=== PATIENT | female | born 1940 | race African-American/Black ===

== ENCOUNTER 2016-10-16 11:04 | Inpatient (IN) | payer MEDICARE, MEDICAID ==
[~2016-10-16] VITALS: Ht 165.1 cm; Wt 69.9 kg
[~2016-10-16 11:04] MED LIST: BUSP5TAB51 PO; HCTZ25T PO; HYDR-2651 PO; HYDRX10T PO; MEM5T; POTA-167 PO; SIMV20TA90; [UNRECOGNIZED DRUG - CODE]
[2016-10-16] MEDS ORDERED: PANTOPRAZOLE SODIUM 40 MG/10 ML VIAL IV STA (11:45)
[2016-10-16] MEDS ORDERED: MORPHINE SULFATE 4 MG/ML SYRG IV ONE (11:45)
[2016-10-16] MEDS ORDERED: ONDANSETRON HCL 4 MG/2 ML VIAL IV ONE (11:45)
[2016-10-16 12:14] LABS: Basophils # (auto) 0 uL; Basophils % (auto) 0.2 % (0.0-2.0); DEFINITIVE VIEW TRANSMISSION; Eosinophils # (auto) 0 uL; Eosinophils % (auto) 0.1 % (0.0-7.0); Hematocrit 36.3 % (36.0-46.0); Hemoglobin 11.9 g/dL (12.2-16.2); Lymphocytes % (auto) 16.9 % (10.0-50.0); Mean Corpuscular Hemoglobin 25.5 pg (28.0-32.0); Mean Corpuscular Hgb Conc. 32.6 g/dL (32.0-36.0); Mean Corpuscular Volume 78.1 fL (80.0-100.0); Mean Platelet Volume 8.2 fL (7.4-10.4); Monocytes # (auto) 0.5 uL; Monocytes % (auto) 8.8 % (0.0-12.0); Neutrophils # (auto) 4.5 uL; Platelet Count (auto) 436 10^3/uL (140-450); Red Cell Distribution Width 14.6 % (11.6-16.0); White Blood Cell 6.1 10^3/uL (4.4-10.8)
[2016-10-16 12:39] LABS: Albumin 3.4 g/dL (3.4-5.0); Anion Gap 12 (5-15); Aspartate Aminotransferase 18 U/L (15-37); BUN/Creatinine Ratio 11.6; Blood Urea Nitrogen 10 mg/dL (7-18); Calcium 8.5 mg/dL (8.5-10.1); Carbon Dioxide 26 mmol/L (21-32); Chloride 92 mmol/L (98-107); GFR African American 82 mL/min; GFR Non-African American 68 mL/min; Glucose 113 mg/dL (74-106); Magnesium 1.8 mg/dL (1.6-2.6); Sodium 130 mmol/L (136-145)
[2016-10-16 12:44] LABS: Alkaline Phosphatase 126 U/L (45-117); Bilirubin, Total 0.3 mg/dL (0.2-1.0); Total Protein 8.4 g/dL (6.4-8.2)
[2016-10-16] MEDS ORDERED: POTASSIUM CHL 20MEQ/100ML 100 ML IV ONE ×2 (13:10→13:15)
[2016-10-16] MEDS ORDERED: NITROGLYCERIN 0.4 MG SL TAB SL PRN (13:15)
[2016-10-16] MEDS ORDERED: ALBUTEROL SULF 2.5 MG/0.5ML(0.5%) NEB SOLN NEB PRN (13:15)
[2016-10-16] MEDS ORDERED: PROMETHAZINE HCL 25 MG/ML 1ML IV PRN (13:15)
[2016-10-16] MEDS ORDERED: LORazepam 0.5 MG TAB PO PRN (13:15)
[2016-10-16] MEDS ORDERED: TEMAZEPAM 15 MG CAP PO PRN (13:15)
[2016-10-16] MEDS ORDERED: PATIENTS OWN MEDICATION (Buspirone Hcl 5 MG) PO PRN (13:15)
[2016-10-16] MEDS ORDERED: HYDROmorphone HCL 2 MG/ML VL IV PRN (13:30)
[2016-10-16] MEDS ORDERED: busPIRone HCL 10 MG TAB PO PRN (13:45)
[2016-10-16] MEDS: SOD CHL 0.9%/ KCL 20MEQ 1,000 ML IV SCH (14:12)
[2016-10-16] MEDS: VERAPAMIL HCL 180mg SR tab PO SCH (14:12)
[2016-10-16] MEDS: FAMOTIDINE (10MG/ML) 2ML VL IV SCH ×2 (14:19→23:02)
[2016-10-16 14:22] LABS: Urine Bilirubin Negative (Negative); Urine Blood Negative /uL (Negative); Urine Color Yellow (Yellow); Urine Glucose Normal (Normal); Urine Hyaline Cast FEW /lpf (0 - 2); Urine Ketone Negative (Negative); Urine Mucus FEW (None Seen); Urine Nitrite Negative (Negative); Urine RBC <1 /hpf (0 - 4); Urine Squamous Epithelial Cell MOD /hpf (<5); Urine Urobilinogen Normal (Negative); Urine pH 6.5 (5.0-8.0)
[2016-10-16] MEDS: hydrALAZINE HCL 25 MG TAB PO SCH ×2 (16:15→23:01)
[2016-10-16 21:34] VITALS: BP 116/57
[2016-10-16] MEDS: METOPROLOL TARTRATE 25 MG TAB PO SCH (22:00)
[2016-10-16] MEDS: ATORVASTATIN 20 MG TAB PO SCH (23:02)
[2016-10-16] MEDS: MEMANTINE HCL 5 MG TAB PO SCH (23:02)
[2016-10-16] MEDS: hydrOXYzine HCL 10 MG TAB PO SCH (23:02)
[2016-10-17] VITALS (8 sets, daily range): BP systolic 96–162; BP diastolic 51–79
[2016-10-17] MEDS: SOD CHL 0.9%/ KCL 20MEQ 1,000 ML IV SCH ×2 (04:00→16:16)
[2016-10-17] MEDS: hydrALAZINE HCL 25 MG TAB PO SCH ×3 (05:37→22:14)
[2016-10-17 06:30] LABS: Basophils # (auto) 0 uL; Basophils % (auto) 0.8 % (0.0-2.0); Eosinophils # (auto) 0 uL; Eosinophils % (auto) 0.6 % (0.0-7.0); Hematocrit 32.8 % (36.0-46.0); Hemoglobin 10.9 g/dL (12.2-16.2); Lymphocytes % (auto) 41.2 % (10.0-50.0); Mean Corpuscular Hemoglobin 27.4 pg (28.0-32.0); Mean Corpuscular Hgb Conc. 33.2 g/dL (32.0-36.0); Mean Corpuscular Volume 82.4 fL (80.0-100.0); Mean Platelet Volume 8.3 fL (7.4-10.4); Monocytes # (auto) 0.5 uL; Monocytes % (auto) 10.6 % (0.0-12.0); Neutrophils # (auto) 2.2 uL; Neutrophils % (auto) 46.8 % (37.0-80.0); Platelet Count (auto) 358 10^3/uL (140-450); Red Cell Distribution Width 14.4 % (11.6-16.0); White Blood Cell 4.7 10^3/uL (4.4-10.8)
[2016-10-17 07:29] LABS: BUN/Creatinine Ratio 14.1; Bilirubin, Total 0.2 mg/dL (0.2-1.0); Calcium 8.4 mg/dL (8.5-10.1); Potassium 3.7 mmol/L (3.5-5.1); Total Protein 6.9 g/dL (6.4-8.2)
[2016-10-17] MEDS ORDERED: busPIRone HCL 10 MG TAB PO SCH (10:00)
[2016-10-17] MEDS: ASPirin 81 mg TAB PO SCH (10:05)
[2016-10-17] MEDS: METOPROLOL TARTRATE 25 MG TAB PO SCH (10:06)
[2016-10-17] MEDS: POTASSIUM CHL 10 Meq TABLET PO SCH (10:06)
[2016-10-17] MEDS: MEMANTINE HCL 5 MG TAB PO SCH ×2 (10:06→22:15)
[2016-10-17] MEDS: HCTZ 25 MG TAB PO SCH (10:06)
[2016-10-17] MEDS: PANTOPRAZOLE 40 MG TAB PO SCH (10:06)
[2016-10-17] MEDS: ENOXAPARIN SOD 40 MG/0.4 ML SYRINGE SC SCH (10:07)
[2016-10-17] MEDS: VERAPAMIL HCL 180mg SR tab PO SCH (10:31)
[2016-10-17] MEDS ORDERED: LACTULOSE 20Gm/30ML SOLN PO PRN (13:45)
[2016-10-17] MEDS ORDERED: cloNIDine HCL 0.1 MG TAB PO PRN (17:30)
[2016-10-17] MEDS: ATORVASTATIN 20 MG TAB PO SCH (22:14)
[2016-10-17] MEDS: hydrOXYzine HCL 10 MG TAB PO SCH (22:15)
[2016-10-18] VITALS (7 sets, daily range): BP systolic 130–162; BP diastolic 52–72
[2016-10-18] MEDS: hydrALAZINE HCL 25 MG TAB PO SCH ×2 (05:28→14:06)
[2016-10-18] MEDS ORDERED: predniSONE 20 MG TAB PO ONE ×3 (09:00→19:00)
[2016-10-18] MEDS ORDERED: amLODIPine BESYLATE 5 MG TAB PO SCH (10:00)
[2016-10-18] MEDS: POTASSIUM CHL 10 Meq TABLET PO SCH (10:45)
[2016-10-18] MEDS: PANTOPRAZOLE 40 MG TAB PO SCH (10:45)
[2016-10-18] MEDS: ASPirin 81 mg TAB PO SCH (10:45)
[2016-10-18] MEDS: MEMANTINE HCL 5 MG TAB PO SCH ×2 (10:46→21:43)
[2016-10-18] MEDS: HCTZ 25 MG TAB PO SCH (10:46)
[2016-10-18] MEDS: ENOXAPARIN SOD 40 MG/0.4 ML SYRINGE SC SCH (10:46)
[2016-10-18] MEDS: ACETAMINOPHEN 500 MG TAB PO PRN (13:09)
[2016-10-18] MEDS ORDERED: METOPROLOL SUCCINATE XL 50 MG TAB PO ONE (16:30)
[2016-10-18] MEDS ORDERED: ENALAPRIL MALEATE 10 MG TAB PO ONE (16:30)
[2016-10-18] MEDS ORDERED: hydrALAZINE HCL 25 MG TAB PO PRN (16:30)
[2016-10-18] MEDS ORDERED: diphenhdrAMINE HCL 25 MG CAP PO ONE (17:00)
[2016-10-18] MEDS: hydrOXYzine HCL 10 MG TAB PO SCH (21:43)
[2016-10-18] MEDS: ATORVASTATIN 20 MG TAB PO SCH (21:43)
[2016-10-19 05:00] VITALS: BP 143/62
[2016-10-19 07:30] VITALS: BP 132/55
[2016-10-19 08:16] VITALS: BP 132/55
[2016-10-19 08:45] LABS: INR 0.97 (0.9-1.15); Partial Thromboplastin Time 31.9 sec (22.64-33.71); Prothrombin Time 10.6 sec (9.37-12.3)
[2016-10-19] MEDS: amLODIPine BESYLATE 5 MG TAB PO SCH (09:30)
[2016-10-19] MEDS: PANTOPRAZOLE 40 MG TAB PO SCH (09:31)
[2016-10-19] MEDS: POTASSIUM CHL 10 Meq TABLET PO SCH (09:31)
[2016-10-19] MEDS: ASPirin 81 mg TAB PO SCH (09:31)
[2016-10-19] MEDS: MEMANTINE HCL 5 MG TAB PO SCH ×2 (09:32→22:06)
[2016-10-19] MEDS: METOPROLOL SUCCINATE XL 50 MG TAB PO SCH (09:33)
[2016-10-19] MEDS: HCTZ 25 MG TAB PO SCH (09:33)
[2016-10-19] MEDS: ENALAPRIL MALEATE 10 MG TAB PO SCH (09:34)
[2016-10-19] MEDS: ENOXAPARIN SOD 40 MG/0.4 ML SYRINGE SC SCH (09:43)
[2016-10-19] MEDS ORDERED: MIDAZOLAM HCL 1MG/1ML-2 ML VIAL IV ONE (11:00)
[2016-10-19] MEDS ORDERED: fentaNYL CITRATE 100 MCG/2 ML VL IM ONE (11:00)
[2016-10-19] MEDS ORDERED: FLUMAZENIL 0.1 MG/ML INJ 10ML MDV IV ONE (11:01)
[2016-10-19] MEDS ORDERED: fentaNYL CITRATE 100 MCG/2 ML VL ONE (11:01)
[2016-10-19] MEDS ORDERED: LIDOCAINE VISCOUS 2% 15ML UD ONE (11:01)
[2016-10-19] MEDS ORDERED: BENZOCAINE (DENTAL) 20 % SPRAY 60ML MT ONE (11:01)
[2016-10-19] MEDS ORDERED: NALOXONE HCL 0.4 MG/ML VIAL ONE (11:01)
[2016-10-19] MEDS ORDERED: MIDAZOLAM HCL 1MG/1ML-2 ML VIAL ONE ×2 (11:01→11:32)
[2016-10-19] MEDS ORDERED: LIDOCAINE VISCOUS 2% 15ML UD PO ONE (11:15)
[2016-10-19] MEDS ORDERED: ATROPINE SULF 0.5 MG/5ML SYR ONE (11:18)
[2016-10-19 13:27] VITALS: BP 157/55
[2016-10-19 16:45] VITALS: BP 141/67
[2016-10-19] MEDS: ACETAMINOPHEN 500 MG TAB PO PRN (20:30)
[2016-10-19 22:00] VITALS: BP 145/58
[2016-10-19] MEDS: ATORVASTATIN 20 MG TAB PO SCH (22:06)
[2016-10-19] MEDS: hydrOXYzine HCL 10 MG TAB PO SCH (22:06)
[2016-10-20 05:00] VITALS: BP 115/90
[2016-10-20 07:37] LABS: Potassium 3.3 mmol/L (3.5-5.1)
[2016-10-20 07:41] LABS: BUN/Creatinine Ratio 17.6; Calcium 8.7 mg/dL (8.5-10.1)
[2016-10-20 08:00] VITALS: BP 132/55
[2016-10-20 08:22] VITALS: BP 124/69
[2016-10-20] MEDS ORDERED: AML5T PO (09:09)
[2016-10-20] MEDS ORDERED: ASPI81CH43 PO (09:09)
[2016-10-20] MEDS ORDERED: ENA10T PO (09:09)
[2016-10-20] MEDS ORDERED: METO50TA7 PO (09:09)
[2016-10-20] MEDS ORDERED: ACETAMINOPHEN 325 MG TAB PO ONE (09:15)
[2016-10-20] MEDS ORDERED: THROAT LOZENGES(CEPASTAT) MT ONE (09:15)
[2016-10-20] MEDS ORDERED: THROAT LOZENGES(CEPASTAT) MT PRN (09:15)
[2016-10-20] MEDS ORDERED: POTASSIUM CHL 10 Meq TABLET PO SCH (10:00)
[2016-10-20] MEDS: ENOXAPARIN SOD 40 MG/0.4 ML SYRINGE SC SCH (10:00)
[2016-10-20] MEDS: METOPROLOL SUCCINATE XL 50 MG TAB PO SCH (10:24)
[2016-10-20] MEDS: HCTZ 25 MG TAB PO SCH (10:24)
[2016-10-20] MEDS: ASPirin 81 mg TAB PO SCH (10:24)
[2016-10-20] MEDS: PANTOPRAZOLE 40 MG TAB PO SCH (10:25)
[2016-10-20] MEDS: amLODIPine BESYLATE 5 MG TAB PO SCH (10:25)
[2016-10-20] MEDS: MEMANTINE HCL 5 MG TAB PO SCH (10:25)
[2016-10-20] MEDS: ENALAPRIL MALEATE 10 MG TAB PO SCH (10:26)
[2016-10-20 13:00] VITALS: BP 123/72
[2016-10-20 13:09] VITALS: BP 124/69
== END 2016-10-20 13:40 | disposition home health service (06) | DRG 206 ==
LOC: ER 11:04 → TELE 11:05 → TELE-WESTW 14:30
PROVIDERS: ADMIT Internal Medicine; ATTEND Internal Medicine
PROC: B246ZZ4 Ultrasonography of Right and Left Heart, Transesophageal (ICD-10-PCS; principal; 2016-10-19)
DX: M94.0 Chondrocostal junction syndrome [Tietze] (principal); E87.1 Hypo-osmolality and hyponatremia; J98.11 Atelectasis; I42.9 Cardiomyopathy, unspecified; E03.9 Hypothyroidism, unspecified; E78.5 Hyperlipidemia, unspecified; J45.909 Unspecified asthma, uncomplicated; M10.9 Gout, unspecified; I70.8 Atherosclerosis of other arteries; I50.9 Heart failure, unspecified; I11.0 Hypertensive heart disease with heart failure; F17.210 Nicotine dependence, cigarettes, uncomplicated; D64.9 Anemia, unspecified; E87.6 Hypokalemia; E87.8 Other disorders of electrolyte and fluid balance, not elsewhere classified; F03.90 Unspecified dementia, unspecified severity, without behavioral disturbance, psychotic disturbance, mood disturbance, and anxiety; F41.9 Anxiety disorder, unspecified; G89.29 Other chronic pain; T50.995A Adverse effect of other drugs, medicaments and biological substances, initial encounter; I08.3 Combined rheumatic disorders of mitral, aortic and tricuspid valves; G47.00 Insomnia, unspecified; I73.9 Peripheral vascular disease, unspecified; K59.00 Constipation, unspecified; F32.9 Major depressive disorder, single episode, unspecified; J02.9 Acute pharyngitis, unspecified; R00.1 Bradycardia, unspecified; Z88.6 Allergy status to analgesic agent; Z82.49 Family history of ischemic heart disease and other diseases of the circulatory system; Z90.710 Acquired absence of both cervix and uterus; Z88.5 Allergy status to narcotic agent; Z88.0 Allergy status to penicillin; Z88.2 Allergy status to sulfonamides; Z88.8 Allergy status to other drugs, medicaments and biological substances; Z79.899 Other long term (current) drug therapy; Y92.89 Other specified places as the place of occurrence of the external cause
CPT/HCPCS: 36415; 71020; 74176; 78582; 80048; 80053; 80061; 81001; 82150; 82378; 82550; 83690; 83735; 84484; 85025; 85379; 85610; 85652; 85730; 86141; 87081; 93005; 93312; 93318; 94640; 94761; 96374; 96375; C9113; J0461; J2250; J2405; J3480; J3490

== ENCOUNTER 2017-04-04 14:19 | Emergency (ER) | payer MEDICARE, MEDICAID ==
[~2017-04-04] VITALS: Ht 162.6 cm; Wt 72.6 kg
[~2017-04-04 14:19] MED LIST changes: +AML5T PO; +ASPI81CH43 PO; +ENA10T PO; -HYDR-2651 PO; +HYDR25TA35 PO; -HYDRX10T PO; +METO50TA7 PO; -[UNRECOGNIZED DRUG - CODE]
[2017-04-04] MEDS ORDERED: SODIUM CHLORIDE 0.9% 500 ML IVB ONE (15:38)
[2017-04-04 16:45] LABS: Basophils # (auto) 0.1 uL; Eosinophils # (auto) 0 uL; Monocytes # (auto) 0.9 uL
[2017-04-04 16:46] LABS: Basophils % (auto) 0.8 % (0.0-2.0); Eosinophils % (auto) 0.2 % (0.0-7.0); Hematocrit 38.6 % (36.0-46.0); Hemoglobin 12.4 g/dL (12.2-16.2); Lymphocytes % (auto) 21.5 % (10.0-50.0); Mean Corpuscular Hemoglobin 25.4 pg (28.0-32.0); Mean Corpuscular Hgb Conc. 32.1 g/dL (32.0-36.0); Mean Corpuscular Volume 79.1 fL (80.0-100.0); Mean Platelet Volume 7.8 fL (6.9-10.8); Monocytes % (auto) 9.7 % (0.0-12.0); Neutrophils # (auto) 6.4 uL; Neutrophils % (auto) 67.8 % (37.0-80.0); Nucleated Red Blood Cells % 0.3 %; Platelet Count (auto) 419 10^3/uL (140-450); Red Cell Distribution Width 14.8 % (11.8-14.3); White Blood Cell 9.5 10^3/uL (4.4-10.8)
[2017-04-04 16:55] LABS: INR 1.05 (0.9-1.15); Partial Thromboplastin Time 29.9 sec (22.64-33.71); Prothrombin Time 11.4 sec (9.37-12.3)
[2017-04-04 17:04] LABS: Albumin 3.2 g/dL (3.4-5.0); BUN/Creatinine Ratio 18.5; Bilirubin, Total 0.6 mg/dL (0.2-1.0); Calcium 9.2 mg/dL (8.5-10.1); Magnesium 2.4 mg/dL (1.6-2.6); Potassium 3.6 mmol/L (3.5-5.1); Total Protein 8.9 g/dL (6.4-8.2)
[2017-04-04 20:37] LABS: Urine Bilirubin Negative (Negative); Urine Blood Negative /uL (Negative); Urine Color Yellow (Yellow); Urine Glucose Normal (Normal); Urine Hyaline Cast FEW /lpf (0 - 2); Urine Ketone Negative (Negative); Urine Mucus FEW (None Seen); Urine Nitrite Negative (Negative); Urine RBC 1 /hpf (0 - 4); Urine Squamous Epithelial Cell MOD /hpf (<5)
[2017-04-04 21:00] VITALS: BP 176/80
== END 2017-04-04 21:56 | disposition home or self-care (01) ==
LOC: ER 14:19
DX: N39.0 Urinary tract infection, site not specified (principal); J45.909 Unspecified asthma, uncomplicated; F17.210 Nicotine dependence, cigarettes, uncomplicated; I11.0 Hypertensive heart disease with heart failure; I50.9 Heart failure, unspecified; M10.9 Gout, unspecified; R42 Dizziness and giddiness; E78.5 Hyperlipidemia, unspecified; E07.9 Disorder of thyroid, unspecified; Z90.710 Acquired absence of both cervix and uterus; Z79.82 Long term (current) use of aspirin; Z91.041 Radiographic dye allergy status; Z88.6 Allergy status to analgesic agent; Z88.0 Allergy status to penicillin
CPT/HCPCS: 36415; 70450; 71010; 80053; 81001; 83735; 84484; 85025; 85610; 85730; 93005; 94761; 96360; 99285; J7040

== ENCOUNTER 2017-06-04 13:19 | Inpatient (IN) | payer MEDICARE, MEDICAID ==
[~2017-06-04] VITALS: Ht 170.2 cm; Wt 64.4 kg
[~2017-06-04 13:19] MED LIST changes: -MEM5T; +MEM5T PO
[2017-06-04 14:14] LABS: Basophils # (auto) 0.1 uL; Eosinophils # (auto) 0.1 uL; Hemoglobin 11.3 g/dL (12.2-16.2); Monocytes # (auto) 0.4 uL; Neutrophils # (auto) 3.8 uL; White Blood Cell 6.2 10^3/uL (4.4-10.8)
[2017-06-04 14:18] LABS: Basophils % (auto) 1.6 % (0.0-2.0); Eosinophils % (auto) 1.6 % (0.0-7.0); Hematocrit 34.7 % (36.0-46.0); Lymphocytes # (auto) 1.8 uL; Lymphocytes % (auto) 28.1 % (10.0-50.0); Mean Corpuscular Hemoglobin 25.4 pg (28.0-32.0); Mean Corpuscular Hgb Conc. 32.5 g/dL (32.0-36.0); Mean Corpuscular Volume 78.1 fL (80.0-100.0); Monocytes % (auto) 7.2 % (0.0-12.0); Neutrophils % (auto) 61.5 % (37.0-80.0); Platelet Count (auto) 341 10^3/uL (140-450); Red Blood Cells 4.45 10^6/uL (4.0-5.20); Red Cell Distribution Width 16.2 % (11.8-14.3)
[2017-06-04 14:35] LABS: Albumin 3.3 g/dL (3.4-5.0); BUN/Creatinine Ratio 10.7; Bilirubin, Total 0.3 mg/dL (0.2-1.0); Calcium 8.5 mg/dL (8.5-10.1); Magnesium 2.1 mg/dL (1.6-2.6)
[2017-06-04 14:47] LABS: Potassium 2.9 mmol/L (3.5-5.1)
[2017-06-04] MEDS ORDERED: ASPirin 81 mg TAB PO ONE (16:15)
[2017-06-04 16:39] LABS: INR 0.98 (0.9-1.15); Partial Thromboplastin Time 28.7 sec (22.64-33.71); Prothrombin Time 10.7 sec (9.37-12.3)
[2017-06-04] MEDS ORDERED: POTASSIUM CHL 20 Meq TABLET PO ONE ×3 (17:15→17:30)
[2017-06-04] MEDS ORDERED: SODIUM CHLORIDE 0.9% 1,000 ML IV SCH (17:25)
[2017-06-04] MEDS ORDERED: busPIRone HCL 10 MG TAB PO PRN (17:30)
[2017-06-04] MEDS ORDERED: LACTULOSE 20Gm/30ML SOLN PO PRN (17:30)
[2017-06-04] MEDS ORDERED: NITROGLYCERIN 0.4 MG SL TAB SL PRN (17:30)
[2017-06-04] MEDS ORDERED: PROMETHAZINE HCL 25 MG/ML 1ML IV PRN (17:30)
[2017-06-04] MEDS ORDERED: TEMAZEPAM 15 MG CAP PO PRN (17:30)
[2017-06-04] MEDS ORDERED: LORazepam 0.5 MG TAB PO PRN (17:30)
[2017-06-04] MEDS: hydrALAZINE HCL 25 MG TAB PO SCH ×2 (18:31→23:18)
[2017-06-04] MEDS: PANTOPRAZOLE 40 MG TAB PO SCH (18:32)
[2017-06-04] MEDS: ENOXAPARIN SOD 40 MG/0.4 ML SYRINGE SC SCH (18:38)
[2017-06-04] MEDS: SOD CHL 0.9%/ KCL 40MEQ 1,000 ML IV SCH (18:38)
[2017-06-04] MEDS: POTASSIUM CHL 20MEQ/100ML 100 ML IV SCH ×2 (18:42→21:55)
[2017-06-04 21:00] VITALS: BP 157/46
[2017-06-04 22:00] VITALS: BP 157/46
[2017-06-04] MEDS: ACETAMINOPHEN 500 MG TAB PO PRN (22:09)
[2017-06-04] MEDS: MEMANTINE HCL 5 MG TAB PO SCH (23:17)
[2017-06-04] MEDS: ATORVASTATIN 20 MG TAB PO SCH (23:18)
[2017-06-05 05:00] VITALS: BP 151/64
[2017-06-05] MEDS: SOD CHL 0.9%/ KCL 40MEQ 1,000 ML IV SCH ×3 (05:43→22:03)
[2017-06-05 06:51] LABS: Cholesterol 198 mg/dL (< 200); HDL Cholesterol 61 mg/dL (40-59); LDL Cholesterol 132 mg/dL (< 100); Triglycerides 85 mg/dL (< 150)
[2017-06-05 08:19] VITALS: BP 149/65
[2017-06-05] MEDS: ASPirin 81 mg TAB PO SCH (09:00)
[2017-06-05] MEDS: hydrALAZINE HCL 25 MG TAB PO SCH ×2 (09:00→17:56)
[2017-06-05] MEDS: HCTZ 25 MG TAB PO SCH (09:01)
[2017-06-05] MEDS: PANTOPRAZOLE 40 MG TAB PO SCH (09:02)
[2017-06-05] MEDS: POTASSIUM CHL 10 Meq TABLET PO SCH (09:02)
[2017-06-05] MEDS: MEMANTINE HCL 5 MG TAB PO SCH ×2 (09:02→21:33)
[2017-06-05] MEDS: METOPROLOL SUCCINATE XL 50 MG TAB PO SCH (09:52)
[2017-06-05] MEDS: ENALAPRIL MALEATE 10 MG TAB PO SCH (09:53)
[2017-06-05] MEDS ORDERED: ASPirin 81 mg TAB PO SCH (10:00)
[2017-06-05 12:30] VITALS: BP 156/61
[2017-06-05] MEDS ORDERED: amLODIPine BESYLATE 5 MG TAB PO ONE (13:30)
[2017-06-05 14:26] LABS: BUN/Creatinine Ratio 7.9; Calcium 8.6 mg/dL (8.5-10.1); Potassium 3.7 mmol/L (3.5-5.1)
[2017-06-05 16:11] VITALS: BP 149/64
[2017-06-05] MEDS: ENOXAPARIN SOD 40 MG/0.4 ML SYRINGE SC SCH (17:57)
[2017-06-05] MEDS: ATORVASTATIN 20 MG TAB PO SCH (21:32)
[2017-06-05 22:00] VITALS: BP 173/72
[2017-06-05] MEDS ORDERED: cloNIDine HCL 0.1 MG TAB PO PRN (23:00)
[2017-06-06] MEDS: hydrALAZINE HCL 25 MG TAB PO SCH ×3 (01:53→17:59)
[2017-06-06 05:00] VITALS: BP 139/61
[2017-06-06 05:26] LABS: Basophils # (auto) 0.1 uL; Eosinophils # (auto) 0 uL; Eosinophils % (auto) 0.2 % (0.0-7.0); Monocytes # (auto) 0.9 uL
[2017-06-06 05:29] LABS: Basophils % (auto) 1.2 % (0.0-2.0); Hematocrit 33.9 % (36.0-46.0); Hemoglobin 11.1 g/dL (12.2-16.2); Lymphocytes # (auto) 1.6 uL; Lymphocytes % (auto) 20.4 % (10.0-50.0); Mean Corpuscular Hemoglobin 25.7 pg (28.0-32.0); Mean Corpuscular Hgb Conc. 32.7 g/dL (32.0-36.0); Mean Corpuscular Volume 78.6 fL (80.0-100.0); Monocytes % (auto) 10.7 % (0.0-12.0); Neutrophils # (auto) 5.4 uL; Neutrophils % (auto) 67.5 % (37.0-80.0); Nucleated Red Blood Cells % 0.1 %; Platelet Count (auto) 295 10^3/uL (140-450); Red Blood Cells 4.31 10^6/uL (4.0-5.20)
[2017-06-06 05:58] LABS: BUN/Creatinine Ratio 10.8; Calcium 8.8 mg/dL (8.5-10.1); Potassium 3.9 mmol/L (3.5-5.1)
[2017-06-06 08:00] VITALS: BP 144/58
[2017-06-06 08:54] VITALS: BP 144/58
[2017-06-06] MEDS: HCTZ 25 MG TAB PO SCH (10:54)
[2017-06-06] MEDS: POTASSIUM CHL 10 Meq TABLET PO SCH (10:54)
[2017-06-06] MEDS: ENALAPRIL MALEATE 10 MG TAB PO SCH (10:54)
[2017-06-06] MEDS: ASPirin 81 mg TAB PO SCH (10:54)
[2017-06-06] MEDS: amLODIPine BESYLATE 5 MG TAB PO SCH (10:55)
[2017-06-06] MEDS: PANTOPRAZOLE 40 MG TAB PO SCH (10:55)
[2017-06-06] MEDS: MEMANTINE HCL 5 MG TAB PO SCH ×2 (10:55→22:25)
[2017-06-06] MEDS: METOPROLOL SUCCINATE XL 50 MG TAB PO SCH (10:56)
[2017-06-06 13:05] VITALS: BP 162/60
[2017-06-06] MEDS ORDERED: ADENOSINE 53 MG in GIVE UN-DILUTED 0 ML IV ONE (13:30)
[2017-06-06 16:20] VITALS: BP 165/57
[2017-06-06] MEDS: ENOXAPARIN SOD 40 MG/0.4 ML SYRINGE SC SCH (17:59)
[2017-06-06 22:00] VITALS: BP 131/45
[2017-06-06] MEDS: ATORVASTATIN 20 MG TAB PO SCH (22:25)
[2017-06-07] VITALS (7 sets, daily range): BP systolic 139–158; BP diastolic 56–75
[2017-06-07] MEDS: hydrALAZINE HCL 25 MG TAB PO SCH ×3 (02:00→17:35)
[2017-06-07] MEDS ORDERED: IPRATROPIUM BROM 0.5 MG/2.5ML INH SOL ONE (08:52)
[2017-06-07] MEDS ORDERED: ALBUTEROL SULF 2.5 MG/0.5ML(0.5%) NEB SOLN ONE (08:52)
[2017-06-07] MEDS: ENALAPRIL MALEATE 10 MG TAB PO SCH (10:00)
[2017-06-07] MEDS: PANTOPRAZOLE 40 MG TAB PO SCH (10:00)
[2017-06-07] MEDS: HCTZ 25 MG TAB PO SCH (10:01)
[2017-06-07] MEDS: MEMANTINE HCL 5 MG TAB PO SCH ×2 (10:01→21:46)
[2017-06-07] MEDS: ASPirin 81 mg TAB PO SCH (10:01)
[2017-06-07] MEDS: POTASSIUM CHL 10 Meq TABLET PO SCH (10:02)
[2017-06-07] MEDS: amLODIPine BESYLATE 5 MG TAB PO SCH (10:02)
[2017-06-07] MEDS: METOPROLOL SUCCINATE XL 50 MG TAB PO SCH (10:06)
[2017-06-07] MEDS ORDERED: METO50TA7 PO (12:44)
[2017-06-07] MEDS ORDERED: METOPROLOL SUCCINATE XL 50 MG TAB PO ONE (12:45)
[2017-06-07] MEDS: ENOXAPARIN SOD 40 MG/0.4 ML SYRINGE SC SCH (17:36)
[2017-06-07] MEDS: ATORVASTATIN 20 MG TAB PO SCH (21:46)
[2017-06-08] MEDS: hydrALAZINE HCL 25 MG TAB PO SCH ×3 (01:15→17:27)
[2017-06-08 05:00] VITALS: BP 145/65
[2017-06-08] MEDS: ACETAMINOPHEN 500 MG TAB PO PRN (09:21)
[2017-06-08 09:43] VITALS: BP 139/53
[2017-06-08] MEDS: ASPirin 81 mg TAB PO SCH (09:55)
[2017-06-08] MEDS: HCTZ 25 MG TAB PO SCH (09:55)
[2017-06-08] MEDS: amLODIPine BESYLATE 5 MG TAB PO SCH (09:56)
[2017-06-08] MEDS: MEMANTINE HCL 5 MG TAB PO SCH ×2 (09:56→21:53)
[2017-06-08] MEDS: PANTOPRAZOLE 40 MG TAB PO SCH (09:56)
[2017-06-08] MEDS: POTASSIUM CHL 10 Meq TABLET PO SCH (09:56)
[2017-06-08] MEDS: ENALAPRIL MALEATE 10 MG TAB PO SCH (09:57)
[2017-06-08] MEDS: METOPROLOL SUCCINATE XL 50 MG TAB PO SCH (09:57)
[2017-06-08 11:43] VITALS: BP 113/48
[2017-06-08 16:57] VITALS: BP 113/52
[2017-06-08] MEDS: ENOXAPARIN SOD 40 MG/0.4 ML SYRINGE SC SCH (18:00)
[2017-06-08] MEDS: ATORVASTATIN 20 MG TAB PO SCH (21:53)
[2017-06-08 22:00] VITALS: BP 124/53
[2017-06-09] MEDS: hydrALAZINE HCL 25 MG TAB PO SCH ×3 (01:37→18:16)
[2017-06-09 05:30] VITALS: BP 111/58
[2017-06-09 06:33] LABS: Basophils # (auto) 0 uL; Eosinophils # (auto) 0 uL; Hemoglobin 10.7 g/dL (12.2-16.2); Lymphocytes # (auto) 1.1 uL; Monocytes # (auto) 1.2 uL; Neutrophils # (auto) 8.2 uL; White Blood Cell 10.5 10^3/uL (4.4-10.8)
[2017-06-09 06:35] LABS: Basophils % (auto) 0.4 % (0.0-2.0); Hematocrit 32.8 % (36.0-46.0); Lymphocytes % (auto) 10.1 % (10.0-50.0); Mean Corpuscular Hemoglobin 25.6 pg (28.0-32.0); Mean Corpuscular Hgb Conc. 32.5 g/dL (32.0-36.0); Mean Corpuscular Volume 78.7 fL (80.0-100.0); Monocytes % (auto) 11.7 % (0.0-12.0); Neutrophils % (auto) 77.8 % (37.0-80.0); Platelet Count (auto) 430 10^3/uL (140-450); Red Blood Cells 4.17 10^6/uL (4.0-5.20)
[2017-06-09] MEDS ORDERED: SODIUM CHLORIDE 0.9% 1,000 ML IV SCH (08:00)
[2017-06-09 08:49] VITALS: BP 142/62
[2017-06-09] MEDS ORDERED: IOHEXOL 350 MG/ML 100ML IJ ONE ×3 (09:08→15:10)
[2017-06-09] MEDS ORDERED: LIDOCAINE 2%HCL (LOCAL ANESTH.) INJ 20ML MDV ONE ×2 (09:08→14:07)
[2017-06-09] MEDS: MEMANTINE HCL 5 MG TAB PO SCH ×2 (10:00→22:03)
[2017-06-09] MEDS: HCTZ 25 MG TAB PO SCH (10:00)
[2017-06-09] MEDS: amLODIPine BESYLATE 5 MG TAB PO SCH (10:00)
[2017-06-09] MEDS: ENALAPRIL MALEATE 10 MG TAB PO SCH (10:00)
[2017-06-09] MEDS: PANTOPRAZOLE 40 MG TAB PO SCH (10:00)
[2017-06-09] MEDS: METOPROLOL SUCCINATE XL 50 MG TAB PO SCH (10:00)
[2017-06-09] MEDS: ASPirin 81 mg TAB PO SCH (10:00)
[2017-06-09] MEDS: POTASSIUM CHL 10 Meq TABLET PO SCH (10:00)
[2017-06-09] MEDS ORDERED: ANGIOMAX 250 MG VIAL IV ONE ×2 (14:14→15:58)
[2017-06-09] MEDS ORDERED: MIDAZOLAM HCL 1MG/1ML-2 ML VIAL ONE (14:15)
[2017-06-09] MEDS ORDERED: SODIUM CHL 0.9% 50 ML ONE ×2 (14:15→15:58)
[2017-06-09] MEDS ORDERED: fentaNYL CITRATE 100 MCG/2 ML VL ONE (14:15)
[2017-06-09] MEDS ORDERED: methylPREDNISolone SOD SUCC 125 MG/2 ML VL ONE (14:19)
[2017-06-09] MEDS ORDERED: ADENOSINE 90 MG/30 ML INJ IV ONE (14:46)
[2017-06-09] MEDS ORDERED: METOPROLOL TARTRATE 1MG/1ML-5ML VIAL IV ONE ×2 (14:51→15:53)
[2017-06-09] MEDS ORDERED: HALOPERIDOL LACTATE 5 MG/ML INJ VIAL ONE (15:26)
[2017-06-09] MEDS ORDERED: CLOPIDOGREL 300 MG TAB ONE (16:02)
[2017-06-09 22:00] VITALS: BP 158/69
[2017-06-09] MEDS: ATORVASTATIN 20 MG TAB PO SCH (22:03)
[2017-06-10] MEDS: hydrALAZINE HCL 25 MG TAB PO SCH ×2 (01:54→09:43)
[2017-06-10 05:30] VITALS: BP 148/73
[2017-06-10 08:57] VITALS: BP 140/67
[2017-06-10] MEDS: ASPirin 81 mg TAB PO SCH (09:43)
[2017-06-10] MEDS: MEMANTINE HCL 5 MG TAB PO SCH (09:44)
[2017-06-10] MEDS: amLODIPine BESYLATE 5 MG TAB PO SCH (09:44)
[2017-06-10] MEDS: HCTZ 25 MG TAB PO SCH (09:44)
[2017-06-10] MEDS: POTASSIUM CHL 10 Meq TABLET PO SCH (09:44)
[2017-06-10] MEDS: METOPROLOL SUCCINATE XL 50 MG TAB PO SCH (09:45)
[2017-06-10] MEDS: ENALAPRIL MALEATE 10 MG TAB PO SCH (09:45)
[2017-06-10] MEDS: PANTOPRAZOLE 40 MG TAB PO SCH (09:45)
[2017-06-10] MEDS ORDERED: CLOPIDOGREL BISULFATE 75 MG TAB PO SCH (10:00)
[2017-06-10] MEDS ORDERED: POTASSIUM CHL 20 Meq TABLET PO ONE (10:15)
[2017-06-10 11:08] LABS: BUN/Creatinine Ratio 30.1; Potassium 3.3 mmol/L (3.5-5.1)
[2017-06-10] MEDS ORDERED: CLOP75TA28 PO (12:06)
[2017-06-10 12:33] VITALS: BP 138/65
[2017-06-10 13:00] VITALS: BP 132/65
== END 2017-06-10 14:18 | disposition home health service (06) | DRG 246 ==
LOC: ER 13:19 → EDBD 13:19 → TELE 13:20 → TELE-WESTW 20:42
PROVIDERS: ADMIT Internal Medicine; ATTEND Internal Medicine
PROC: 027034Z Dilation of Coronary Artery, One Artery with Drug-eluting Intraluminal Device, Percutaneous Approach (ICD-10-PCS; principal; 2017-06-09)
PROC: 4A023N7 Measurement of Cardiac Sampling and Pressure, Left Heart, Percutaneous Approach (ICD-10-PCS; 2017-06-09)
PROC: B2111ZZ Fluoroscopy of Multiple Coronary Arteries using Low Osmolar Contrast (ICD-10-PCS; 2017-06-09)
PROC: B2151ZZ Fluoroscopy of Left Heart using Low Osmolar Contrast (ICD-10-PCS; 2017-06-09)
PROC: 4A033BC Measurement of Arterial Pressure, Coronary, Percutaneous Approach (ICD-10-PCS; 2017-06-09)
DX: I11.0 Hypertensive heart disease with heart failure (principal); I21.4 Non-ST elevation (NSTEMI) myocardial infarction; I42.9 Cardiomyopathy, unspecified; I50.43 Acute on chronic combined systolic (congestive) and diastolic (congestive) heart failure; I48.91 Unspecified atrial fibrillation; I08.3 Combined rheumatic disorders of mitral, aortic and tricuspid valves; I16.0 Hypertensive urgency; E87.6 Hypokalemia; D64.9 Anemia, unspecified; F03.90 Unspecified dementia, unspecified severity, without behavioral disturbance, psychotic disturbance, mood disturbance, and anxiety; F41.9 Anxiety disorder, unspecified; E03.9 Hypothyroidism, unspecified; F17.210 Nicotine dependence, cigarettes, uncomplicated; I73.9 Peripheral vascular disease, unspecified; F32.9 Major depressive disorder, single episode, unspecified; E78.5 Hyperlipidemia, unspecified; I65.21 Occlusion and stenosis of right carotid artery; J45.909 Unspecified asthma, uncomplicated; I25.110 Atherosclerotic heart disease of native coronary artery with unstable angina pectoris; Z82.49 Family history of ischemic heart disease and other diseases of the circulatory system; Z90.710 Acquired absence of both cervix and uterus; Z88.5 Allergy status to narcotic agent; Z88.0 Allergy status to penicillin; Z88.2 Allergy status to sulfonamides; Z88.8 Allergy status to other drugs, medicaments and biological substances; Z88.6 Allergy status to analgesic agent; Z91.041 Radiographic dye allergy status; Z79.899 Other long term (current) drug therapy; Z79.82 Long term (current) use of aspirin
CPT/HCPCS: 36415; 71045; 78452; 80048; 80053; 80061; 82550; 83735; 83880; 84132; 84443; 84484; 85025; 85379; 85610; 85652; 85730; 86141; 86850; 86900; 86901; 92928; 93005; 93017; 93306; 93458; 93571; 93886; 94640; 94761; 97163; 99152; 99153; A4565; C1874; J0153; J2250; J3480